=== PATIENT | male | born 1970 | race Caucasian/White ===

== ENCOUNTER 2019-04-11 15:02 | Emergency (ER) | payer OTHER ==
[~2019-04-11] VITALS: Ht 175.3 cm; Wt 99.8 kg
[2019-04-11 15:13] VITALS: BP 135/81
--- NOTE | 2019-04-11 15:19 | NUR ---
PATIENT AMBULATED TO BED #6
--- NOTE | 2019-04-11 15:31 | NUR ---
Dr. Petit evaluating patient at bedside.
--- NOTE | 2019-04-11 15:34 | NUR ---
OPENED WOUND, 3CM LONG ON PT'S LEFT CHIN. MINIMAL BLEEDING AT THIS TIME.NOT CURRENT WITH TETANUS SHOT. PATIENT [employer] OF DOG. DENIES N/V/D; SKIN IS PINK/WARM/DRY; AAOX4 WITH EVEN AND STEADY GAIT; LUNGS CLEAR BL; HR EVEN AND REGULAR; PT DENIES ANY FEVER, CP, SOB, OR COUGH AT THIS TIME; PATIENT STATES PAIN OF 2/10 AT THIS TIME; VSS; PATIENT POSITIONED FOR COMFORT; HOB ELEVATED; BEDRAILS UP X2; BED DOWN. ER MD MADE AWARE OF PT STATUS.
[2019-04-11] MEDS ORDERED: LIDOCAINE 1% 500 MG/50 ML VIAL INJ SCH (15:35)
[2019-04-11] MEDS ORDERED: LIDOCAINE MPF 1% 5mL VIAL ONE ×2 (15:51→16:02)
[2019-04-11] MEDS ORDERED: BACITRACIN OINT 500 UNITS/GM PKT TP ONE (16:05)
--- NOTE | 2019-04-11 16:11 | NUR ---
PLACED NEOSPORIN ON PT'S WOUND LOCATED ON LEFT CHEEK.
[2019-04-11] MEDS ORDERED: NEOMYCIN/POLYMYXIN/BACITRACIN 0.9 GM/1 PKT TP ONE (16:15)
[2019-04-11 16:52] VITALS: BP 128/78
--- NOTE | 2019-04-11 16:53 | NUR ---
Patient discharged with v/s stable. Written and verbal after care instructions given and explained. Patient alert, oriented and verbalized understanding of instructions. Ambulatory with steady gait. All questions addressed prior to discharge. ID band removed. Patient advised to follow up with PMD. Rx of AUGMENTIN AND MOTRIN given. Patient educated on indication of medication including possible reaction and side effects. Opportunity to ask questions provided and answered.
== END 2019-04-11 16:53 | disposition home or self-care (01) ==
LOC: MED 15:02
DX: S01.511A Laceration without foreign body of lip, initial encounter (principal); W54.0XXA Bitten by dog, initial encounter; Y93.89 Activity, other specified; Y92.89 Other specified places as the place of occurrence of the external cause; Y99.8 Other external cause status
CPT/HCPCS: 12011; 90471; 90715; 99283; J2001

== ENCOUNTER 2021-11-09 09:20 | Day surgery (SDC) | payer OTHER, SELFPAY ==
[~2021-11-09] VITALS: Ht 172.7 cm; Wt 88.9 kg
[2021-11-09] MEDS ORDERED: fentaNYL citrate 0.05 MG/ML VIAL ONE (11:04)
[2021-11-09] MEDS ORDERED: LIDOCAINE 2% 100 MG/5 ML UJET TP ONE (11:04)
[2021-11-09] MEDS ORDERED: LIDOCAINE 1% 500 MG/50 ML VIAL ONE (11:04)
[2021-11-09] MEDS ORDERED: fentaNYL citrate 0.05 MG/ML VIAL IVP ONE (11:55)
== END 2021-11-09 12:27 | disposition home or self-care (01) ==
LOC: MDS 09:20 → MMU 09:20 → MDS 12:27
PROVIDERS: ATTEND Internal Medicine Gastroenterology
DX: Z12.11 Encounter for screening for malignant neoplasm of colon (principal); Z90.49 Acquired absence of other specified parts of digestive tract; Z79.899 Other long term (current) drug therapy; Z20.822 Contact with and (suspected) exposure to COVID-19
CPT/HCPCS: 45378; 87426; J2001; J3010